=== PATIENT | male | born 1955 | race Caucasian/White ===

== ENCOUNTER 2016-11-05 12:50 | Inpatient (IN) | payer MEDICAID, MEDICARE, OTHER ==
[~2016-11-05] VITALS: Ht 160 cm; Wt 86.2 kg
[2016-11-05] MEDS ORDERED: MORPHINE SULFATE 4 MG/ML CPJ (NOT FOR IM USE) IV STA (13:52)
[2016-11-05] MEDS ORDERED: ONDANSETRON HCL 4MG/2ML VIAL IV STA (13:52)
[2016-11-05 14:35] LABS: CHLORIDE 98 mEq/L (98-107)
[2016-11-05 14:36] LABS: INR 1.6; PROTHROMBIN TIME 16.6 sec
[2016-11-05 14:37] LABS: HEMATOCRIT. 35.9 % (42.0-52.0); HEMOGLOBIN. 12.2 g/dL (14.0-18.0); MEAN CORPUSCULAR HEMOGLOBIN 28.7 pg (28.0-32.0); MEAN CORPUSCULAR VOLUME 84.3 fL (80.0-94.0); MEAN PLATELET VOLUME 8.2 fl (7.4-10.4); PLATELET 696 x1000/uL (130-400); RED BLOOD CELL COUNT 4.26 mill/uL (4.7-6.1); RED CELL DISTRIBUTION WIDTH 19.8 % (11.6-14.6)
[2016-11-05 14:49] LABS: CARBON DIOXIDE 14 mEq/L (21-32)
[2016-11-05] MEDS ORDERED: ALBUTEROL (0.083%) 2.5MG/3ML NEB HHN NR (15:01)
[2016-11-05] MEDS ORDERED: SODIUM BICARBONATE 8.4% 1 MEQ/ML 50ML SYR IV NR (15:15)
[2016-11-05] MEDS ORDERED: INSULIN REGULAR (HUMULIN R) 300UNITS/3ML IV NR (15:15)
[2016-11-05] MEDS ORDERED: DEXTROSE 50% WATER 50ML SYRINGE IV NR (15:15)
[2016-11-05 15:49] LABS: PLATELET ESTIMATE INCREASED
[2016-11-05 16:58] LABS: CLARITY URINE TURBID (CLEAR); COLOR URINE DARK YELLOW (YELLOW); GLUCOSE URINE TRACE (NEGATIVE); KETONES URINE NEGATIVE (NEGATIVE); LEUKOCYTE ESTERASE URINE 1+ (NEGATIVE); NITRITE URINE NEGATIVE (NEGATIVE); OCCULT BLOOD URINE 3+ (NEGATIVE); PH URINE 5.5 (4.5-8.0); PROTEIN URINE 2+ (NEGATIVE); SPECIFIC GRAVITY URINE 1.016 (1.005-1.030); UROBILINOGEN URINE 0.2 E.U./dL (0.2-1.0)
[2016-11-05] MEDS ORDERED: KETOROLAC 30MG/ML VIAL IV STA (17:13)
[2016-11-05] MEDS ORDERED: SODIUM CHLORIDE 0.9% 1,000 ML IV ONE (17:13)
[2016-11-05 20:48] VITALS: BP 116/70
[2016-11-05] MEDS ORDERED: CLONIDINE 0.1MG TABLET PO PRN (21:30)
[2016-11-05] MEDS ORDERED: SODIUM POLYSTYRENE SULFONATE 15 G/60 ML BOT PO NR (21:30)
[2016-11-05] MEDS ORDERED: ACETAMINOPHEN 325MG TABLET PO PRN (21:30)
[2016-11-05] MEDS: SODIUM CHLORIDE 0.9% 1,000 ML IV SCH (22:32)
[2016-11-05] MEDS: METRONIDAZOLE 500 MG PREMIX 100 ML IV SCH (22:40)
[2016-11-05] MEDS: CEFTRIAXONE 1 G PREMIX 50 ML IV SCH (23:29)
[2016-11-05 23:33] LABS: CREATINE KINASE 93 IU/L (39-308); CREATINE KINASE MB FRACTION 1.4 ng/mL (0.5-3.6); TROPONIN I < 0.02 ng/mL (0.00-0.04)
[2016-11-06] VITALS: BP 104/64
[2016-11-06] MEDS ORDERED: LEVO25TA7 PO (03:09)
[2016-11-06] MEDS ORDERED: ALBU2.5V13 IH (03:09)
[2016-11-06] MEDS ORDERED: ALBU6.7H INH (03:09)
[2016-11-06 04:00] VITALS: BP 98/61
[2016-11-06] MEDS: METRONIDAZOLE 500 MG PREMIX 100 ML IV SCH ×3 (05:40→22:02)
[2016-11-06 07:21] LABS: HEMATOCRIT. 32.8 % (42.0-52.0); HEMOGLOBIN. 11.2 g/dL (14.0-18.0); MEAN CORPUSCULAR HEMOGLOBIN 29.1 pg (28.0-32.0); MEAN CORPUSCULAR VOLUME 84.9 fL (80.0-94.0); MEAN PLATELET VOLUME 8.1 fl (7.4-10.4); PLATELET 603 x1000/uL (130-400); RED BLOOD CELL COUNT 3.86 mill/uL (4.7-6.1); RED CELL DISTRIBUTION WIDTH 19.9 % (11.6-14.6)
[2016-11-06] MEDS ORDERED: ALBUTEROL 6.7GM HFA INHALER INH SCH (07:45)
[2016-11-06 07:52] LABS: CARBON DIOXIDE 14 mEq/L (21-32); CHLORIDE 100 mEq/L (98-107)
[2016-11-06 07:57] LABS: CREATINE KINASE 85 IU/L (39-308); TROPONIN I < 0.02 ng/mL (0.00-0.04)
[2016-11-06 08:00] VITALS: BP 91/58
[2016-11-06] MEDS: CEFTRIAXONE 1 G PREMIX 50 ML IV SCH (08:30)
[2016-11-06] MEDS: LEVOTHYROXINE SODIUM 25MCG TABLET PO SCH (08:30)
[2016-11-06] MEDS: ENOXAPARIN 30MG/0.3ML SYR SUBCUT SCH (08:31)
[2016-11-06] MEDS ORDERED: DEXTROSE 50% WATER 50ML SYRINGE IV NR ×2 (09:00→15:00)
[2016-11-06] MEDS ORDERED: CALCIUM GLUCONATE 100MG/ML 10ML VIAL IV ONE (09:00)
[2016-11-06] MEDS ORDERED: INSULIN REGULAR (HUMULIN R) UD 100 UNITS/ML SYR IV NR (09:00)
[2016-11-06] MEDS ORDERED: CALCIUM GLUCONATE 1000 MG in DEXTROSE 5% WATER 100 ML IV NR (09:00)
[2016-11-06] MEDS ORDERED: SODIUM POLYSTYRENE SULFONATE 15 G/60 ML BOT PO NR ×2 (09:00→15:00)
[2016-11-06] MEDS ORDERED: SODIUM BICARBONATE 8.4% 1 MEQ/ML 50ML SYR IV NR ×2 (09:00→15:00)
[2016-11-06 10:40] LABS: PLATELET ESTIMATE INCREASED
[2016-11-06 12:00] VITALS: BP 89/52
[2016-11-06] MEDS: SODIUM CHLORIDE 0.9% 1,000 ML IV SCH ×2 (14:16→22:06)
[2016-11-06] MEDS ORDERED: INSULIN REGULAR (HUMULIN R) 300UNITS/3ML IV NR (15:30)
[2016-11-06 16:00] VITALS: BP 99/60
[2016-11-06] MEDS: IPRATROPIUM/ALBUTEROL 0.5-3(2.5)MG/3ML NEB INH PRN (16:38)
[2016-11-06 20:00] VITALS: BP 103/60
[2016-11-06] MEDS: HYDROCODONE/ACETAMINOPHEN 5/325MG TABLET PO PRN (22:05)
[2016-11-07] VITALS: BP 103/64
[2016-11-07 04:00] VITALS: BP 103/66
[2016-11-07] MEDS: IPRATROPIUM/ALBUTEROL 0.5-3(2.5)MG/3ML NEB INH PRN (05:15)
[2016-11-07] MEDS: METRONIDAZOLE 500 MG PREMIX 100 ML IV SCH (06:04)
[2016-11-07 06:05] LABS: HEMATOCRIT. 30.6 % (42.0-52.0); HEMOGLOBIN. 10.5 g/dL (14.0-18.0); MEAN CORPUSCULAR HEMOGLOBIN 28.9 pg (28.0-32.0); MEAN CORPUSCULAR VOLUME 84.1 fL (80.0-94.0); MEAN PLATELET VOLUME 8.2 fl (7.4-10.4); PLATELET 553 x1000/uL (130-400); RED BLOOD CELL COUNT 3.64 mill/uL (4.7-6.1); RED CELL DISTRIBUTION WIDTH 20.2 % (11.6-14.6)
[2016-11-07 06:36] LABS: CHLORIDE 100 mEq/L (98-107)
[2016-11-07 06:49] LABS: CARBON DIOXIDE 18 mEq/L (21-32)
[2016-11-07] MEDS: LEVOTHYROXINE SODIUM 25MCG TABLET PO SCH ×2 (07:40→08:10)
[2016-11-07 08:00] VITALS: BP 105/66
[2016-11-07] MEDS: ENOXAPARIN 30MG/0.3ML SYR SUBCUT SCH (08:10)
[2016-11-07] MEDS: CEFTRIAXONE 1 G PREMIX 50 ML IV SCH (08:10)
[2016-11-07] MEDS: HYDROCODONE/ACETAMINOPHEN 5/325MG TABLET PO PRN ×2 (08:12→17:47)
[2016-11-07 08:28] LABS: PLATELET ESTIMATE INCREASED
[2016-11-07 12:31] VITALS: BP 107/73
[2016-11-07 16:00] VITALS: BP 102/70
[2016-11-07 20:00] VITALS: BP 109/64
[2016-11-07] MEDS: MAGNESIUM/ALUMINUM HYDROXIDE/SIMETHICONE 30ML UDC PO PRN (22:26)
[2016-11-08] VITALS: BP 99/66
[2016-11-08 04:00] VITALS: BP 105/69
[2016-11-08] MEDS: HYDROCODONE/ACETAMINOPHEN 5/325MG TABLET PO PRN ×2 (05:25→10:12)
[2016-11-08 06:01] LABS: HEMATOCRIT. 30.5 % (42.0-52.0); HEMOGLOBIN. 10.5 g/dL (14.0-18.0); MEAN CORPUSCULAR HEMOGLOBIN 28.6 pg (28.0-32.0); MEAN CORPUSCULAR VOLUME 82.8 fL (80.0-94.0); MEAN PLATELET VOLUME 8.6 fl (7.4-10.4); PLATELET 547 x1000/uL (130-400); RED BLOOD CELL COUNT 3.68 mill/uL (4.7-6.1)
[2016-11-08 07:05] LABS: PHOSPHORUS 5.5 mg/dL (2.5-4.9)
[2016-11-08 08:00] VITALS: BP 98/70
[2016-11-08 08:00] LABS: HEPATITIS B SURFACE ANTIGEN NEGATIVE
[2016-11-08] MEDS: LEVOTHYROXINE SODIUM 25MCG TABLET PO SCH (08:00)
[2016-11-08] MEDS ORDERED: PANTOPRAZOLE 40MG DR TABLET PO SCH (09:00)
[2016-11-08] MEDS: CEFTRIAXONE 1 G PREMIX 50 ML IV SCH (10:09)
[2016-11-08] MEDS: ENOXAPARIN 30MG/0.3ML SYR SUBCUT SCH (10:12)
[2016-11-08] MEDS: ONDANSETRON HCL 4MG/2ML VIAL IV PRN ×2 (11:16→20:38)
[2016-11-08] MEDS: MAGNESIUM/ALUMINUM HYDROXIDE/SIMETHICONE 30ML UDC PO PRN ×2 (11:16→12:25)
[2016-11-08 11:20] LABS: PLATELET ESTIMATE INCREASED
[2016-11-08 12:00] VITALS: BP 106/60
[2016-11-08 16:00] VITALS: BP 98/58
[2016-11-08 20:00] VITALS: BP_SYST 97; BP_DIAS 59; BP_DIAS 62
[2016-11-09] VITALS (22 sets, daily range): BP systolic 79–100; BP diastolic 43–62
[2016-11-09] MEDS: ONDANSETRON HCL 4MG/2ML VIAL IV PRN ×3 (03:09→16:13)
[2016-11-09 05:59] LABS: PROTHROMBIN TIME 30.9 sec
[2016-11-09 06:00] LABS: HEMATOCRIT. 24.6 % (42.0-52.0); HEMOGLOBIN. 8.6 g/dL (14.0-18.0); MEAN CORPUSCULAR HEMOGLOBIN 29.2 pg (28.0-32.0); MEAN CORPUSCULAR VOLUME 84.2 fL (80.0-94.0); MEAN PLATELET VOLUME 9.3 fl (7.4-10.4); PLATELET 551 x1000/uL (130-400); RED BLOOD CELL COUNT 2.93 mill/uL (4.7-6.1); RED CELL DISTRIBUTION WIDTH 19.6 % (11.6-14.6)
[2016-11-09] MEDS: LEVOTHYROXINE SODIUM 25MCG TABLET PO SCH (07:40)
[2016-11-09] MEDS: ENOXAPARIN 30MG/0.3ML SYR SUBCUT SCH (09:00)
[2016-11-09] MEDS ORDERED: SODIUM CHLORIDE 0.9% 250 ML IV SCH (10:15)
[2016-11-09] MEDS ORDERED: NOREPINEPHRINE 4 MG in DEXT 5% WATER 246 ML IV PRN (10:15)
[2016-11-09] MEDS: CEFTRIAXONE 1 G PREMIX 50 ML IV SCH (10:28)
[2016-11-09] MEDS ORDERED: PANTOPRAZOLE SODIUM 40 MG/VIAL IV SCH (10:30)
[2016-11-09 10:38] LABS: PLATELET ESTIMATE INCREASED
[2016-11-09 10:45] LABS: BG BASE EXCESS -1.1 mmol/L (-2.0-2.0); BG CARBOXYHEMOGLOBIN 0.9 % (0.5-1.5); BG DEOXYHEMOGLOBIN 3.9 % (0.0-5.0); BG FRACTION INSPIRED OXYGEN 21; BG HCO3 ACT 22.3 mmol/L (22.0-26.0); BG METHEMOGLOBIN 0.1 % (0.0-1.5); BG OXYGEN SATURATION 96.1 % (92.0-98.5); BG OXYHEMOGLOBIN 95.1 % (94.0-97.0); BG PCO2 31.8 mmHg (35.0-45.0); BG PH 7.464 (7.350-7.450); BG SAMPLE SITE RIGHT RADIAL; BG TOTAL HEMOGLOBIN 8.7 g/dL (12.0-18.0); BG VENT MODE ROOM AIR
[2016-11-09] MEDS ORDERED: DEXT 5%/0.45% NACL 1000ML 1,000 ML IV SCH (11:15)
[2016-11-09] MEDS ORDERED: HETASTARCH/NORMAL SALINE 500 ML PLAST..BAG IV ONE (12:00)
[2016-11-09] MEDS ORDERED: HETASTARCH/NORMAL SALINE 250 ML IV NR (12:15)
[2016-11-09 12:32] LABS: HEMATOCRIT 22.9 % (42.0-52.0); HEMOGLOBIN 7.8 g/dL (14.0-18.0)
[2016-11-09] MEDS ORDERED: DEXT 5%/0.9% NACL 1,000 ML IV ONE (13:00)
[2016-11-09] MEDS: HYDROCODONE/ACETAMINOPHEN 5/325MG TABLET PO PRN (18:49)
[2016-11-09 18:56] LABS: HEMATOCRIT 21.2 % (42.0-52.0)
[2016-11-10] VITALS (34 sets, daily range): BP systolic 87–111; BP diastolic 46–96
[2016-11-10 06:56] LABS: HEMATOCRIT. 27.3 % (42.0-52.0); HEMOGLOBIN. 9.1 g/dL (14.0-18.0); MEAN CORPUSCULAR HEMOGLOBIN 28.8 pg (28.0-32.0); MEAN CORPUSCULAR VOLUME 86.3 fL (80.0-94.0); MEAN PLATELET VOLUME 9.7 fl (7.4-10.4); PLATELET 458 x1000/uL (130-400); RED BLOOD CELL COUNT 3.17 mill/uL (4.7-6.1); RED CELL DISTRIBUTION WIDTH 17.3 % (11.6-14.6)
[2016-11-10] MEDS: LEVOTHYROXINE SODIUM 25MCG TABLET PO SCH (07:30)
[2016-11-10] MEDS: CEFTRIAXONE 1 G PREMIX 50 ML IV SCH (08:32)
[2016-11-10] MEDS: PANTOPRAZOLE SODIUM 40 MG/VIAL IV SCH (08:32)
[2016-11-10 08:57] LABS: PLATELET ESTIMATE INCREASED
[2016-11-10 11:45] LABS: HEMATOCRIT 26.5 % (42.0-52.0); HEMOGLOBIN 9.1 g/dL (14.0-18.0)
[2016-11-10] MEDS: HYDROCODONE/ACETAMINOPHEN 5/325MG TABLET PO PRN (12:43)
[2016-11-10] MEDS: IPRATROPIUM/ALBUTEROL 0.5-3(2.5)MG/3ML NEB INH PRN (15:32)
[2016-11-10] MEDS ORDERED: SODIUM CHLORIDE 0.9% 1000ML BAG (SEPSIS BOLUS) IV ONE (16:15)
[2016-11-10] MEDS ORDERED: SODIUM CHLORIDE 0.9% 1,000 ML IV ONE ×2 (16:30)
[2016-11-10 20:37] LABS: HEMATOCRIT 24.9 % (42.0-52.0); HEMOGLOBIN 8.3 g/dL (14.0-18.0)
[2016-11-11] VITALS (21 sets, daily range): BP systolic 89–112; BP diastolic 49–64
[2016-11-11] MEDS: MORPHINE SULFATE 2 MG/ML CPJ (NOT FOR IM USE) IV PRN ×2 (00:19→16:41)
[2016-11-11 01:11] LABS: HEMATOCRIT 23.8 % (42.0-52.0); HEMOGLOBIN 8.3 g/dL (14.0-18.0)
[2016-11-11] MEDS: LEVOTHYROXINE SODIUM 25MCG TABLET PO SCH (07:30)
[2016-11-11] MEDS: CEFTRIAXONE 1 G PREMIX 50 ML IV SCH (08:32)
[2016-11-11] MEDS: PANTOPRAZOLE SODIUM 40 MG/VIAL IV SCH (08:32)
[2016-11-11 11:31] LABS: HEMATOCRIT. 29.3 % (42.0-52.0); HEMOGLOBIN. 9.9 g/dL (14.0-18.0); MEAN CORPUSCULAR HEMOGLOBIN 29.5 pg (28.0-32.0); MEAN CORPUSCULAR VOLUME 87.3 fL (80.0-94.0); MEAN PLATELET VOLUME 9.5 fl (7.4-10.4); PLATELET 419 x1000/uL (130-400); RED BLOOD CELL COUNT 3.36 mill/uL (4.7-6.1); RED CELL DISTRIBUTION WIDTH 16.9 % (11.6-14.6)
[2016-11-11 13:34] LABS: PLATELET ESTIMATE INCREASED
[2016-11-11] MEDS: AMPICILLIN 500MG in SODIUM CHLORIDE 0.9% 50ML IV SCH (17:21)
[2016-11-11 22:18] LABS: HEMATOCRIT 26.8 % (42.0-52.0); HEMOGLOBIN 9.1 g/dL (14.0-18.0)
[2016-11-12] VITALS (11 sets, daily range): BP systolic 87–102; BP diastolic 47–65
[2016-11-12] MEDS: AMPICILLIN 500MG in SODIUM CHLORIDE 0.9% 50ML IV SCH ×2 (05:41→18:07)
[2016-11-12 06:44] LABS: HEMATOCRIT. 28.2 % (42.0-52.0); HEMOGLOBIN. 9.7 g/dL (14.0-18.0); MEAN CORPUSCULAR VOLUME 87.3 fL (80.0-94.0); MEAN PLATELET VOLUME 9.7 fl (7.4-10.4); PLATELET 428 x1000/uL (130-400); RED BLOOD CELL COUNT 3.23 mill/uL (4.7-6.1); RED CELL DISTRIBUTION WIDTH 16.6 % (11.6-14.6)
[2016-11-12] MEDS: PANTOPRAZOLE SODIUM 40 MG/VIAL IV SCH (08:29)
[2016-11-12] MEDS: LEVOTHYROXINE SODIUM 25MCG TABLET PO SCH (08:29)
[2016-11-12] MEDS: MORPHINE SULFATE 2 MG/ML CPJ (NOT FOR IM USE) IV PRN ×3 (08:34→18:13)
[2016-11-12 13:14] LABS: HEPATITIS B SURFACE ANTIGEN NEGATIVE
[2016-11-12 13:35] LABS: PLATELET ESTIMATE MARKEDLY DECREASED
[2016-11-12 13:42] LABS: HEPATITIS B CORE AB IGM NEGATIVE
[2016-11-12 13:44] LABS: HEPATITIS A AB IGM NEGATIVE (NEGATIVE)
[2016-11-12 15:39] LABS: HEMOGLOBIN 9.5 g/dL (14.0-18.0)
[2016-11-12 22:33] LABS: HEMATOCRIT 26.5 % (42.0-52.0)
[2016-11-13] VITALS (14 sets, daily range): BP systolic 86–99; BP diastolic 45–60
[2016-11-13] MEDS: MORPHINE SULFATE 2 MG/ML CPJ (NOT FOR IM USE) IV PRN ×4 (02:59→19:54)
[2016-11-13] MEDS: AMPICILLIN 500MG in SODIUM CHLORIDE 0.9% 50ML IV SCH ×2 (05:12→17:40)
[2016-11-13 06:28] LABS: HEMATOCRIT 27.4 % (42.0-52.0); HEMOGLOBIN 9.3 g/dL (14.0-18.0)
[2016-11-13] MEDS: LEVOTHYROXINE SODIUM 25MCG TABLET PO SCH (06:36)
[2016-11-13 08:49] LABS: HEMATOCRIT. 27.6 % (42.0-52.0); HEMOGLOBIN. 9.4 g/dL (14.0-18.0); MEAN CORPUSCULAR VOLUME 88.6 fL (80.0-94.0); RED BLOOD CELL COUNT 3.11 mill/uL (4.7-6.1)
[2016-11-13 08:50] LABS: MEAN CORPUSCULAR HEMOGLOBIN 30.1 pg (28.0-32.0); MEAN PLATELET VOLUME 9.7 fl (7.4-10.4); PLATELET 334 x1000/uL (130-400)
[2016-11-13] MEDS: PANTOPRAZOLE SODIUM 40 MG/VIAL IV SCH ×2 (09:00→13:53)
[2016-11-13 10:02] LABS: PLATELET ESTIMATE NORMAL
[2016-11-13 15:51] LABS: AMMONIA < 10 uMol/L (<32)
[2016-11-14] VITALS (12 sets, daily range): BP systolic 89–112; BP diastolic 48–76
[2016-11-14] MEDS: MORPHINE SULFATE 2 MG/ML CPJ (NOT FOR IM USE) IV PRN ×3 (04:44→21:41)
[2016-11-14] MEDS: AMPICILLIN 500MG in SODIUM CHLORIDE 0.9% 50ML IV SCH ×2 (05:13→17:21)
[2016-11-14] MEDS: LEVOTHYROXINE SODIUM 25MCG TABLET PO SCH (06:32)
[2016-11-14 06:38] LABS: HEMOGLOBIN. 8.9 g/dL (14.0-18.0); MEAN CORPUSCULAR HEMOGLOBIN 29.9 pg (28.0-32.0); MEAN CORPUSCULAR VOLUME 87.6 fL (80.0-94.0); PLATELET 345 x1000/uL (130-400); RED BLOOD CELL COUNT 2.97 mill/uL (4.7-6.1); RED CELL DISTRIBUTION WIDTH 17.1 % (11.6-14.6)
[2016-11-14 07:52] LABS: PLATELET ESTIMATE NORMAL
[2016-11-14] MEDS: PANTOPRAZOLE SODIUM 40 MG/VIAL IV SCH (08:15)
[2016-11-15] VITALS: BP 111/68
[2016-11-15 01:47] VITALS: BP 107/57
[2016-11-15] MEDS: AMPICILLIN 500MG in SODIUM CHLORIDE 0.9% 50ML IV SCH ×2 (06:32→18:08)
[2016-11-15] MEDS: LEVOTHYROXINE SODIUM 25MCG TABLET PO SCH (06:32)
[2016-11-15] MEDS: PANTOPRAZOLE SODIUM 40 MG/VIAL IV SCH (08:50)
[2016-11-15] MEDS: LORAZEPAM 2MG/ML CPJ IV PRN (09:26)
[2016-11-15 10:04] LABS: HEMATOCRIT. 29.3 % (42.0-52.0); HEMOGLOBIN. 9.9 g/dL (14.0-18.0); MEAN CORPUSCULAR HEMOGLOBIN 30.1 pg (28.0-32.0); MEAN CORPUSCULAR VOLUME 89.2 fL (80.0-94.0); PLATELET 328 x1000/uL (130-400); RED BLOOD CELL COUNT 3.28 mill/uL (4.7-6.1); RED CELL DISTRIBUTION WIDTH 17.6 % (11.6-14.6)
[2016-11-15 10:35] LABS: PLATELET ESTIMATE NORMAL
[2016-11-15] MEDS: DEXT 5%/0.45% NACL 1000ML 1,000 ML IV SCH (16:46)
[2016-11-15 22:00] VITALS: BP 102/58
[2016-11-16] VITALS (12 sets, daily range): BP systolic 81–106; BP diastolic 45–64
[2016-11-16] MEDS: AMPICILLIN 500MG in SODIUM CHLORIDE 0.9% 50ML IV SCH ×2 (05:41→17:37)
[2016-11-16] MEDS: DEXT 5%/0.45% NACL 1000ML 1,000 ML IV SCH (05:44)
[2016-11-16 07:14] LABS: HEMOGLOBIN. 9.1 g/dL (14.0-18.0); MEAN CORPUSCULAR HEMOGLOBIN 30.1 pg (28.0-32.0); MEAN CORPUSCULAR VOLUME 89.4 fL (80.0-94.0); MEAN PLATELET VOLUME 9.9 fl (7.4-10.4); PLATELET 334 x1000/uL (130-400); RED BLOOD CELL COUNT 3.02 mill/uL (4.7-6.1); RED CELL DISTRIBUTION WIDTH 17.9 % (11.6-14.6)
[2016-11-16] MEDS: LEVOTHYROXINE SODIUM 25MCG TABLET PO SCH (07:25)
[2016-11-16] MEDS: LORAZEPAM 2MG/ML CPJ IV PRN (07:59)
[2016-11-16] MEDS: PANTOPRAZOLE SODIUM 40 MG/VIAL IV SCH (09:11)
[2016-11-16 11:34] LABS: PLATELET ESTIMATE NORMAL
[2016-11-17] VITALS (9 sets, daily range): BP systolic 82–142; BP diastolic 51–63
[2016-11-17] MEDS: AMPICILLIN 500MG in SODIUM CHLORIDE 0.9% 50ML IV SCH (05:25)
[2016-11-17] MEDS: DEXT 5%/0.45% NACL 1000ML 1,000 ML IV SCH ×2 (05:26→22:15)
[2016-11-17] MEDS: LEVOTHYROXINE SODIUM 25MCG TABLET PO SCH (07:16)
[2016-11-17] MEDS: PANTOPRAZOLE SODIUM 40 MG/VIAL IV SCH (08:58)
[2016-11-17] MEDS: LORAZEPAM 2MG/ML CPJ IV PRN ×2 (14:45→20:18)
[2016-11-18] VITALS (10 sets, daily range): BP systolic 84–98; BP diastolic 45–60
[2016-11-18] MEDS: LEVOTHYROXINE SODIUM 25MCG TABLET PO SCH (07:30)
[2016-11-18] MEDS: PANTOPRAZOLE SODIUM 40 MG/VIAL IV SCH (08:29)
[2016-11-18] MEDS: LORAZEPAM 2MG/ML CPJ IV PRN ×3 (12:05→22:45)
[2016-11-18] MEDS: DEXT 5%/0.45% NACL 1000ML 1,000 ML IV SCH (18:02)
[2016-11-19] VITALS (11 sets, daily range): BP systolic 76–99; BP diastolic 26–59
[2016-11-19] MEDS: LEVOTHYROXINE SODIUM 25MCG TABLET PO SCH (06:39)
[2016-11-19] MEDS: LORAZEPAM 2MG/ML CPJ IV PRN (06:53)
[2016-11-19] MEDS: DEXT 5%/0.45% NACL 1000ML 1,000 ML IV SCH (13:03)
== END 2016-11-19 21:55 | disposition expired | DRG 441 ==
LOC: ER 14:49 → 7WST 17:17 → 5EST 11-09 11:01
PROVIDERS: ADMIT Internal Medicine; ATTEND Internal Medicine
PROC: 02HV33Z Insertion of Infusion Device into Superior Vena Cava, Percutaneous Approach (ICD-10-PCS; principal; 2016-11-07)
PROC: B5181ZA Fluoroscopy of Superior Vena Cava using Low Osmolar Contrast, Guidance (ICD-10-PCS; 2016-11-07)
PROC: B548ZZA Ultrasonography of Superior Vena Cava, Guidance (ICD-10-PCS; 2016-11-07)
PROC: 5A1D60Z (ICD-10-PCS; 2016-11-08)
PROC: 30233N1 Transfusion of Nonautologous Red Blood Cells into Peripheral Vein, Percutaneous Approach (ICD-10-PCS; 2016-11-09)
DX: K72.00 Acute and subacute hepatic failure without coma (principal); J96.00 Acute respiratory failure, unspecified whether with hypoxia or hypercapnia; K85.90 Acute pancreatitis without necrosis or infection, unspecified; G92 Toxic encephalopathy; J18.9 Pneumonia, unspecified organism; N17.0 Acute kidney failure with tubular necrosis; N39.0 Urinary tract infection, site not specified; E46 Unspecified protein-calorie malnutrition; E87.1 Hypo-osmolality and hyponatremia; E87.2 Acidosis; J90 Pleural effusion, not elsewhere classified; C22.8 Malignant neoplasm of liver, primary, unspecified as to type; Z66 Do not resuscitate; B95.2 Enterococcus as the cause of diseases classified elsewhere; E87.70 Fluid overload, unspecified; D64.9 Anemia, unspecified; E87.5 Hyperkalemia; I95.9 Hypotension, unspecified; E11.22 Type 2 diabetes mellitus with diabetic chronic kidney disease; E11.65 Type 2 diabetes mellitus with hyperglycemia; N18.9 Chronic kidney disease, unspecified; Z51.5 Encounter for palliative care; E03.9 Hypothyroidism, unspecified; E87.8 Other disorders of electrolyte and fluid balance, not elsewhere classified; Z68.33 Body mass index [BMI] 33.0-33.9, adult; Z85.028 Personal history of other malignant neoplasm of stomach
CPT/HCPCS: 36415; 36556; 36600; 70450; 71010; 74176; 76937; 77001; 80048; 80053; 80076; 81001; 82140; 82375; 82550; 82553; 82805; 82962; 83690; 84100; 84132; 84484; 85014; 85018; 85025; 85610; 86705; 86709; 86803; 86850; 86900; 86920; 87040; 87077; 87086; 87186; 87340; 93005; 94640; 96374; 96375; 99285; A6261; C1752; C9113; J0290; J0610; J0696; J1650; J1815; J1885; J2060; J2270; J2405; J3490; J7030; J7040; J7042; J7050; J7060; J7611; J7620; P9016